=== PATIENT | male | born 1950 | race Caucasian/White ===

== ENCOUNTER 2019-08-02 12:42 | Day surgery (SDC) | payer MEDICARE, OTHER ==
[~2019-08-02] VITALS: Ht 177.8 cm; Wt 86.0 kg
[2019-08-02] MEDS ORDERED: ZOLP10 PO (13:56)
[2019-08-02] MEDS ORDERED: LISI20 PO (13:57)
[2019-08-02] MEDS ORDERED: ASPI325 PO (13:57)
[2019-08-02] MEDS ORDERED: ZOCOR20 MG PO (13:57)
[2019-08-02] MEDS ORDERED: TRAZ50 PO (13:58)
[2019-08-02] MEDS ORDERED: MELATONIN5 M1 PO (13:59)
--- NOTE | 2019-08-02 13:59 | NUR ---
PT ADMITTED TO [facility]. AGREES WITH PLANNED PROCEDURE. LUNG SOUNDS CLEAR. TOLERATED BOWEL PREP. STATES LAST BM CLEAR YELLOW.
--- NOTE | 2019-08-02 14:21 | NUR ---
08/02/19 1421 Nathalie Mcgraw History, Chart, Medications and Allergies reviewed before start of procedure.PATIENT DETERMINED TO BE ASA APPROPRIATE FOR PROPOFOL SEDATION PRIOR TO START OF PROCEDURE BY .MONITOR INTACT WITH CONTINUOUS PULSE OXIMETRY AND INTERMITTENT BP.3-LEAD EKG REVIEWED WITH PHYSICIAN PRIOR TO START OF PROCEDURE.O2 VIA N/C INTACT THROUGHOUT SEDATION/PROCEDURE.
== END 2019-08-02 15:13 | disposition home or self-care (01) ==
LOC: ORSCMMR 12:42 → ORD 13:30 → ORSCMMR 14:15
PROVIDERS: Internal Medicine Gastroenterology
PROC: 0DBN8ZX Excision of Sigmoid Colon, Via Natural or Artificial Opening Endoscopic, Diagnostic (ICD-10-PCS; principal; 2019-08-02 14:15)
PROC: 0DBK8ZX Excision of Ascending Colon, Via Natural or Artificial Opening Endoscopic, Diagnostic (ICD-10-PCS; principal; 2019-08-02 14:15)
DX: R10.9 Unspecified abdominal pain (principal); Z86.010 Personal history of colon polyps; D12.2 Benign neoplasm of ascending colon; K63.5 Polyp of colon; K64.8 Other hemorrhoids; K57.30 Diverticulosis of large intestine without perforation or abscess without bleeding; I25.10 Atherosclerotic heart disease of native coronary artery without angina pectoris; E78.00 Pure hypercholesterolemia, unspecified; I10 Essential (primary) hypertension; K21.9 Gastro-esophageal reflux disease without esophagitis; Z79.82 Long term (current) use of aspirin; Z79.899 Other long term (current) drug therapy
CPT/HCPCS: 88305; J2704; J7120

== ENCOUNTER 2022-08-25 09:49 | Day surgery (SDC) | payer MEDICARE, OTHER ==
[~2022-08-25] VITALS: Ht 177.8 cm; Wt 82.8 kg
[~2022-08-25 09:49] MED LIST: ASPI325 PO; LISI20 PO; MELATONIN5 M1 PO; TRAZ50 PO; ZOCOR20 MG PO; ZOLP10 PO
[2022-08-25] MEDS ORDERED: Amlodipine Bes2.5 MG (10:25)
== END 2022-08-25 12:13 | disposition home or self-care (01) ==
LOC: ORSCSDS 09:49
PROVIDERS: Internal Medicine Gastroenterology
PROC: 0DBH8ZX Excision of Cecum, Via Natural or Artificial Opening Endoscopic, Diagnostic (ICD-10-PCS; principal; 2022-08-25 11:15)
PROC: 0DBM8ZX Excision of Descending Colon, Via Natural or Artificial Opening Endoscopic, Diagnostic (ICD-10-PCS; principal; 2022-08-25 11:15)
PROC: 0DBK8ZX Excision of Ascending Colon, Via Natural or Artificial Opening Endoscopic, Diagnostic (ICD-10-PCS; principal; 2022-08-25 11:15)
DX: Z12.11 Encounter for screening for malignant neoplasm of colon (principal); D12.0 Benign neoplasm of cecum; D12.4 Benign neoplasm of descending colon; K57.30 Diverticulosis of large intestine without perforation or abscess without bleeding; K64.8 Other hemorrhoids; Z86.010 Personal history of colon polyps; Z80.0 Family history of malignant neoplasm of digestive organs; Z79.82 Long term (current) use of aspirin; Z79.899 Other long term (current) drug therapy; Z87.891 Personal history of nicotine dependence
CPT/HCPCS: 88305; J2405; J2704; J7120